=== PATIENT | female | born 1980 | race Hispanic/Latino ===

== ENCOUNTER 2024-06-24 08:37 | Outpatient (CLI) | payer BC | END 2024-06-24 08:38 | disposition home or self-care (01) | LOC: CSHULT 08:37 | PROVIDERS: ATTEND Nurse Practitioner Family | DX: R74.8 Abnormal levels of other serum enzymes (principal); K76.0 Fatty (change of) liver, not elsewhere classified | CPT/HCPCS: 76705 ==